=== PATIENT | female | born 1995 | race Caucasian/White ===

== ENCOUNTER 2018-06-12 17:17 | Emergency (ER) | payer OTHER ==
--- NOTE | 2018-06-12 17:35 | ER Report ---
History and Physical Time Seen By MD: 17:34 Hx. of Stated Complaint: MIGRAINE UNRELIEVED BY IBUPROFEN HPI/ROS CHIEF COMPLAINT: Headache HISTORY OF PRESENT ILLNESS: 23-year-old female patient presents to emergency room with complaint of headache. Patient states that she has had a headache throughout today. She states the headache has become worse as a is gone. She states that she has taken some minor Profen for this with no improvement. Patient states she does occasionally get headaches are severe like this. She saw some this occurred was when she was living in [place]. She states she went to the hospital he gave her a cocktail of medication which seemed to help with her headache. She states that she has been nauseated but denies having any vomiting. She states she has had some black spots develop her vision which has prompted her to come to emergency room for evaluation. She states this is not the worst headache she has ever had. REVIEW OF SYSTEMS: Respiratory: No cough, no dyspnea. Cardiovascular: No chest pain, no palpitations. Gastrointestinal: No vomiting, no abdominal pain. Musculoskeletal: No back pain. Allergies: Coded Allergies: Cephalosporins (Verified Allergy, Unknown, 06/12/18) Penicillins (Verified Allergy, Unknown, 06/12/18) Home Meds No Active Prescriptions or Reported Meds Past Medical/Surgical History Patient has a past medical history of migraines. Patient has a surgical history of appendectomy, right tib-fib repair, tonsillectomy. Reviewed Nurses Notes: Yes Constitutional Vital Sign - Last 24 Hours 06/12/18 06/12/18 06/12/18 06/12/18 17:28 17:30 17:32 17:47 Temp 98.5 Pulse 76 81 81 Resp 18 B/P (MAP) 143/82 128/77 (94) Pulse Ox 96 97 96 O2 Delivery Room Air 06/12/18 06/12/18 06/12/18 06/12/18 18:00 18:17 18:30 18:32 Pulse 77 69 B/P (MAP) 129/89 (102) 132/85 (101) Pulse Ox 96 97 06/12/18 06/12/18 06/12/18 06/12/18 18:47 19:00 19:02 19:06 Pulse 60 67 B/P (MAP) 120/77 (91) 124/85 (98) Pulse Ox 100 98 Intake and Output 06/12/18 06/12/18 06/13/18 15:00 23:00 07:00 Intake Total 1000 ml Balance 1000 ml Physical Exam General Appearance: The patient is alert, has no immediate need for airway protection and no current signs of toxicity. Eyes: Pupils equal and round no injection. Extraocular movements are intact. Respiratory: Chest is non tender, lungs are clear to auscultation. Cardiac: regular rate and rhythm Gastrointestinal: Abdomen is soft and non tender, no masses, bowel sounds normal. Musculoskeletal: Neck: Neck is supple and non tender. Extremities have full range of motion and are non tender. Skin: No rashes or lesions. Neuro: Patient is alert and oriented 4, cranial nerves II through XII grossly intact. DIFFERENTIAL DIAGNOSIS: After history and physical exam differential diagnosis was considered for headache including but not limited to subarachnoid hemorrhage , migraine headache, tension headache and infectious causes such as meningitis, pharyngitis and sinusitis. Medical Decision Making Data Points Result Diagram: 06/12/18 1753 06/12/18 1753 Laboratory Hematology Test 06/12/18 17:53 Red Blood Count 4.70 M/uL (4.17-5.56) Mean Corpuscular Volume 94.6 fL (80.0-96.0) Mean Corpuscular Hemoglobin 32.5 pg (26.0-33.0) Mean Corpuscular Hemoglobin Concent 34.4 g/dL (32.0-36.0) Red Cell Distribution Width 15.5 % (11.5-14.5) Mean Platelet Volume 9.8 fL (7.2-11.1) Neutrophils (%) (Auto) 56.4 % (39.4-72.5) Lymphocytes (%) (Auto) 32.5 % (17.6-49.6) Monocytes (%) (Auto) 7.5 % (4.1-12.4) Eosinophils (%) (Auto) 2.9 % (0.4-6.7) Basophils (%) (Auto) 0.7 % (0.3-1.4) Nucleated RBC Relative Count (auto) 0.0 /100WBC Neutrophils # (Auto) 5.9 K/uL (2.0-7.4) Lymphocytes # (Auto) 3.4 K/uL (1.3-3.6) Monocytes # (Auto) 0.8 K/uL (0.3-1.0) Eosinophils # (Auto) 0.3 K/uL (0.0-0.5) Basophils # (Auto) 0.1 K/uL (0.0-0.1) Nucleated RBC Absolute Count (auto) 0.01 K/uL Sodium Level 140 mmol/L (137-145) Potassium Level 3.7 mmol/L (3.5-5.0) Chloride Level 105 mmol/L (98-107) Carbon Dioxide Level 26 mmol/L (22-31) Blood Urea Nitrogen 12 mg/dl (7-18) Creatinine 0.80 mg/dl (0.52-1.04) Glomerular Filtration Rate Calc > 60.0 Random Glucose 102 mg/dl (75-110) Calcium Level 9.1 mg/dl (8.4-10.2) Total Bilirubin 0.3 mg/dl (0.2-1.3) Aspartate Amino Transf (AST/SGOT) 19 U/L (0-35) Alanine Aminotransferase (ALT/SGPT) 21 U/L (0-56) Alkaline Phosphatase 50 U/L (0-126) Total Protein 6.7 g/dl (6.3-8.2) Albumin 4.0 g/dl (3.5-5.0) Chemistry Test 06/12/18 17:53 White Blood Count 10.5 k/uL (4.5-11.0) Red Blood Count 4.70 M/uL (4.17-5.56) Hemoglobin 15.3 g/dL (12.0-16.0) Hematocrit 44.5 % (34.0-47.0) Mean Corpuscular Volume 94.6 fL (80.0-96.0) Mean Corpuscular Hemoglobin 32.5 pg (26.0-33.0) Mean Corpuscular Hemoglobin Concent 34.4 g/dL (32.0-36.0) Red Cell Distribution Width 15.5 % (11.5-14.5) Platelet Count 174 K/uL (150-450) Mean Platelet Volume 9.8 fL (7.2-11.1) Neutrophils (%) (Auto) 56.4 % (39.4-72.5) Lymphocytes (%) (Auto) 32.5 % (17.6-49.6) Monocytes (%) (Auto) 7.5 % (4.1-12.4) Eosinophils (%) (Auto) 2.9 % (0.4-6.7) Basophils (%) (Auto) 0.7 % (0.3-1.4) Nucleated RBC Relative Count (auto) 0.0 /100WBC Neutrophils # (Auto) 5.9 K/uL (2.0-7.4) Lymphocytes # (Auto) 3.4 K/uL (1.3-3.6) Monocytes # (Auto) 0.8 K/uL (0.3-1.0) Eosinophils # (Auto) 0.3 K/uL (0.0-0.5) Basophils # (Auto) 0.1 K/uL (0.0-0.1) Nucleated RBC Absolute Count (auto) 0.01 K/uL Glomerular Filtration Rate Calc > 60.0 Calcium Level 9.1 mg/dl (8.4-10.2) Total Bilirubin 0.3 mg/dl (0.2-1.3) Aspartate Amino Transf (AST/SGOT) 19 U/L (0-35) Alanine Aminotransferase (ALT/SGPT) 21 U/L (0-56) Alkaline Phosphatase 50 U/L (0-126) Total Protein 6.7 g/dl (6.3-8.2) Albumin 4.0 g/dl (3.5-5.0) ED Course/Re-evaluation ED Course Patient was admitted to exam room, history and physical were obtained. Differential diagnoses were considered. On examination lungs are clear, heart is regular, abdomen soft nontender. Patient is alert and oriented 4, cranial nerves II through XII grossly intact. With this being the worse headache of her life a CT scan was deferred. Patient had an IV started, received a liter of normal saline as well as Toradol 15 mg, Benadryl 25 mg, promethazine 12.5 mg and Norflex 30 mg. After approximately 30 minutes reevaluated the patient. Patient states her headache is significantly improved. She states she is ready to go home. We will go ahead and discharge patient home at this time. I would like her to keep track of possible triggers for her migraines. She is to increase her fluid intake, make sure she is splinting of rest. She is return to emergency room if condition worsens. Patient verbalized understanding and agreement with plan. Decision to Disposition Date: Jun 12, 2018 Decision to Disposition Time: 19:02 Depart Departure Latest Vital Signs Vital Signs Date Time Temp Pulse Resp B/P (MAP) Pulse Ox O2 Delivery O2 Flow Rate FiO2 06/12/18 19:06 124/85 (98) 06/12/18 19:02 67 98 06/12/18 17:28 98.5 18 Room Air Impression: Primary Impression: Migraine Condition: Improved Disposition: HOME OR SELF-CARE New Scripts No Active Prescriptions or Reported Meds Patient Instructions: Migraine Headache (ED) Additional Instructions: Increase fluid intake. Get plenty of rest. Watch for triggers for your migraines. Follow up in the ER if condition worsens. Follow up with your primary care provider when you return home, unless you are staying in [place] and then you can follow up with one here. Problem Qualifiers Primary Impression: Migraine Migraine type: without aura Status migrainosus presence: without status migrainosus Intractability: not intractable Qualified Codes: G43.009 - Migraine without aura, not intractable, without status migrainosus NICOLA ACE Jun 12, 2018 17:35
[2018-06-12] MEDS ORDERED: NS(*) 0.9% 1000 ML BAG 1,000 ML IV ONE (17:40)
[2018-06-12] MEDS ORDERED: PROMETHAZINE 25 MG/ML 1 ML AMP IVP ONE (17:40)
[2018-06-12] MEDS ORDERED: diphenhydrAMINE 50 MG/ML VIAL IVP ONE (17:40)
[2018-06-12] MEDS ORDERED: ORPHENADRINE 60MG/2ML INJ IVP ONE (17:40)
[2018-06-12] MEDS ORDERED: KETOROLAC 15 MG/ML VIAL IVP ONE (17:40)
[2018-06-12 18:00] LABS: PLATELET COUNT, AUTOMATED 174 K/uL (150-450)
[2018-06-12 19:06] VITALS: BP 124/85
== END 2018-06-12 19:14 | disposition home or self-care (01) ==
LOC: ER 17:40
DX: G43.009 Migraine without aura, not intractable, without status migrainosus (principal)
CPT/HCPCS: 85025; 96361; 96374; 96375; 99284; J1200; J1885; J2360; J2550; J7030; 82040; 82247; 82310; 82374; 82435; 82565; 82947; 84075; 84132; 84155; 84295; 84450; 84460; 84520

== ENCOUNTER 2018-09-08 07:54 | Emergency (ER) | payer OTHER ==
[2018-09-08] MEDS ORDERED: ENT KIT ONE (08:04)
--- NOTE | 2018-09-08 08:16 | ER Report ---
History and Physical Time Seen By MD: 08:00 Hx. of Stated Complaint: nosebleed 30 min HPI/ROS CHIEF COMPLAINT: Nosebleed HISTORY OF PRESENT ILLNESS: Patient is a 23-year-old female who presents to the emergency Department with nosebleed that began 30 minutes ago after blowing her nose. Patient states she had a nosebleed earlier this week and was seen in urgent care and had some cautery done. She reports having nosebleeds in the past as well. She denies any history of bleeding diathesis. She denies upon Willebrand's disease. She does report heavy menses for 7 days or more at times. She denies any nasal trauma. REVIEW OF SYSTEMS: ENT: nosebleed to right nares Allergies: Coded Allergies: Cephalosporins (Verified Allergy, Unknown, 06/12/18) Penicillins (Verified Allergy, Unknown, 06/12/18) amoxicillin (Verified Allergy, Unknown, 09/08/18) Home Meds Active Scripts Hydrocodone Bit/Acetaminophen (HYDROCODON-ACETAMINOPHEN 5-325) 1 Each Tablet, 1 EACH PO Q4-6H for PAIN, #20 TAB 0 Refills Prov:KIKE QUESADA MD 09/08/18 Clindamycin Hcl (CLINDAMYCIN HCL) 300 Mg Capsule, 300 MG PO Q6H, #12 CAPSULE 0 Refills Prov:KIKE QUESADA MD 09/08/18 Past Medical/Surgical History History of nosebleeds Constitutional Vital Sign - Last 24 Hours 09/08/18 09/08/18 09/08/18 08:00 09:04 09:24 Temp 99.1 Pulse 83 Resp 18 B/P (MAP) 105/82 121/82 (95) Pulse Ox 94 O2 Delivery Room Air Physical Exam General Appearance: Alert, no distress. Eyes: Pupils equal and round no pallor or injection. ENT, Mouth: Ears: Tympanic membranes are normal. Nose: Bleeding from right naris Mouth: Mucous membranes are moist. Throat: No erythema or exudates there is no tonsillar hypertrophy and uvula is midline. Medical Decision Making ED Course/Re-evaluation ED Course 09/08/2018 8:16:03 am plan this time will be to pack the nose after Vik- Synephrine is instilled into both nares. We'll have patient hold direct pressure for 15-20 minutes and then reevaluate. 09/08/2018 8:36:27 am packing removed and almost immediately there was bleeding from the right naris. Plan at this time is we placed a 4.5 cm rapid Rhino in t hat was soaked in 5 ML's of TXA. The balloon was then inflated to 3 mL of air. There is no current bleeding at this time. 09/08/2018 9:03:19 am reevaluated patient no further bleeding at this time with a rapid Rhino in place. Patient was counseled to keep the packing in place over the next 48 hours and to return to the emergency department Saturday morning for reevaluation and possible packing removal at that time. We will place the patient on oral antibiotics while the packing is in place we will also prescribe pain medications for her. Patient was further instructed to return to the emergency department if bleeding worsens at any time. Speak with Dr. Enoch Castillo who is her ear nose and throat doctor in an attempt to get her an appointment this week but he is away on vacation until next week. Patient was counseled to call and schedule a follow-up appointment sometime next week with Dr. Castillo for evaluation of nosebleeds. It was also suggested the patient obtain a family practice physician and undergo testing for possible von Willebrand's disease. Decision to Disposition Date: Sep 08, 2018 Decision to Disposition Time: 09:05 Depart Departure Latest Vital Signs Vital Signs Date Time Temp Pulse Resp B/P (MAP) Pulse Ox O2 Delivery O2 Flow Rate FiO2 09/08/18 09:24 121/82 (95) 09/08/18 09:04 99.1 09/08/18 08:00 83 18 94 Room Air Impression: Primary Impression: Right-sided nosebleed Condition: Improved Disposition: HOME OR SELF-CARE Referrals: ENOCH CASTILLO JR, MD 1 Week New Scripts Hydrocodone Bit/Acetaminophen (HYDROCODON-ACETAMINOPHEN 5-325) 1 Each Tablet 1 EACH PO Q4-6H for PAIN, #20 TAB 0 Refills Prov: KIKE QUESADA MD 09/08/18 Clindamycin Hcl (CLINDAMYCIN HCL) 300 Mg Capsule 300 MG PO Q6H, #12 CAPSULE 0 Refills Prov: KIKE QUESADA MD 09/08/18 Patient Instructions: Nosebleed (ED) Additional Instructions: Keep the Rapid Rhino packing in place. Take the antibiotics as directed Return to the Emergency Department on Saturday, September 10 for reevaluation and packing removal Return to the ER if your bleeding worsens at any time. Call to schedule a follow up appointment with Dr Enoch Castillo next week KIKE QUESADA MD Sep 08, 2018 08:16
[2018-09-08] MEDS ORDERED: TRANEXAMIC AC 1000 MG/10ML SDV ONE ×2 (08:30→08:32)
[2018-09-08] MEDS ORDERED: HYDROCOD/ACETAMIN 2.5-108/5 ML 5 ML UDC PO ONE (08:35)
[2018-09-08] MEDS ORDERED: CLIN300C99 PO (08:54)
[2018-09-08] MEDS ORDERED: LOR5/325 PO (08:54)
[2018-09-08 09:24] VITALS: BP 121/82
[2018-09-08] MEDS ORDERED: PHENYLEPHRINE 0.5% 15 ML BTL ONE (10:20)
== END 2018-09-08 09:20 | disposition home or self-care (01) ==
LOC: ER 08:28
DX: R04.0 Epistaxis (principal)
CPT/HCPCS: 99283

== ENCOUNTER 2018-09-10 07:27 | Emergency (ER) | payer OTHER ==
[~2018-09-10 07:27] MED LIST: CLIN300C99 PO; LOR5/325 PO
[2018-09-10 07:31] VITALS: BP 124/81
--- NOTE | 2018-09-10 07:39 | ER Report ---
History and Physical Time Seen By MD: 07:38 Hx. of Stated Complaint: patient here for removal of nasal packing HPI/ROS CHIEF COMPLAINT: Epistaxis status post Rhino Rocket placement HISTORY OF PRESENT ILLNESS: Patient is a 23-year-old female here with complaints of epistaxis from the right nares air status post Rhino Rocket placement after being evaluated 2 days ago in the emergency department. Patient reports having extended menses, difficulty controlling nasal bleed status post cauterization last week by ENT. Concern was raised that the patient may have underlying bleeding disorder such as von Willebrand disease. Patient returns to the emergency department for Rhino Rocket removal. REVIEW OF SYSTEMS: Constitutional: No fever, no chills. Eyes: No discharge. ENT: + rhino rocket in place Skin: No rashes. Neurological: No headache. Allergies: Coded Allergies: Cephalosporins (Verified Allergy, Unknown, 06/12/18) Penicillins (Verified Allergy, Unknown, 06/12/18) amoxicillin (Verified Allergy, Unknown, 09/08/18) Home Meds Active Scripts Hydrocodone Bit/Acetaminophen (HYDROCODON-ACETAMINOPHEN 5-325) 1 Each Tablet, 1 EACH PO Q4-6H for PAIN, #20 TAB 0 Refills Prov:KIKE QUESADA MD 09/08/18 Clindamycin Hcl (CLINDAMYCIN HCL) 300 Mg Capsule, 300 MG PO Q6H, #12 CAPSULE 0 Refills Prov:KIKE QUESADA MD 09/08/18 Constitutional Vital Sign - Last 24 Hours 09/10/18 07:31 Temp 97.8 Pulse 102 Resp 20 B/P (MAP) 124/81 Pulse Ox 92 O2 Delivery Room Air Physical Exam General Appearance: The patient is alert, has no immediate need for airway protection and no signs of toxicity. NAD Eyes: Pupils equal and round no pallor or injection. ENT, Mouth: + friable vessels in kesselbechs plexus of right nare post rhino rocket removal Neurological: No focal neuro deficits DIFFERENTIAL DIAGNOSIS: After history and physical exam differential diagnosis was considered for anterior versus posterior epistaxis, underlying bleeding disorder, von Willebrand's disease Medical Decision Making ED Course/Re-evaluation ED Course Patient is a 23-year-old female here status post Rhino Rocket placement 2 days ago after failed tranexamic acid trial. Rhino Rocket was removed and patient immediately began to have recurrent epistaxis from the right naris. Tranexamic acid was soaked on a cotton pledget for approximately 10 minutes application. Nasal speculum was used to visualize Kiesselbach plexus revealing friable vessels in the region. Silver nitrate stick was used to cauterize the visualize vessels and hemostasis was achieved. Patient was advised to follow closely with ENT for reevaluation and further intervention and follow with her PCP for further evaluation of possible underlying bleeding disorder. Patient was hemodynamically stable at time of discharge. Procedure Initially, tranexamic acid soaked cotton pledget was applied for approximately 15 minutes to the right naris. Pledget was removed and a nasal speculum was used to visualize Kesselbechs plexus of the right nare. A silver nitrate stick was applied directly to the exposed vessels in the region providing local cautery. Hemostasis was achieved and patient tolerated procedure well. Decision to Disposition Date: Sep 10, 2018 Decision to Disposition Time: 08:47 Depart Departure Latest Vital Signs Vital Signs Date Time Temp Pulse Resp B/P (MAP) Pulse Ox O2 Delivery O2 Flow Rate FiO2 09/10/18 07:31 97.8 102 20 124/81 92 Room Air Impression: Primary Impression: Epistaxis Condition: Improved Disposition: HOME OR SELF-CARE Patient Instructions: Nosebleed (GEN) Additional Instructions: Please follow up closely with ear nose and throat for further evaluation. Please return promptly if you develop recurrent nosebleed. Please avoid manual manipulation of the nose as this may cause or precipitate rebleeding. If you do develop rebleeding, please pinch the nose close to the bridge and applied direct pressure without sensation of pressure for approximately 15 minutes. If bleeding persists please return promptly. Please also follow-up with your family doctor with consideration for evaluation of possible underlying bleeding disorder. TAYLOR LUCAS DO Sep 10, 2018 07:39
[2018-09-10] MEDS ORDERED: TRANEXAMIC AC 1000 MG/10ML SDV ONE (07:45)
[2018-09-10] MEDS ORDERED: SILVER NITRATE SWABS 10 PKG TP ONE (08:20)
== END 2018-09-10 08:56 | disposition home or self-care (01) ==
LOC: ER 07:40
DX: R04.0 Epistaxis (principal)
CPT/HCPCS: 99282